=== PATIENT | female | born 1975 | race Caucasian/White ===

== ENCOUNTER 2018-10-17 16:24 | Emergency (ER) | payer SELFPAY ==
[2018-10-17 16:25] VITALS: BP 125/72; PULSE 94; RESP 16; TEMP 36.8; O2SAT 100; BMI 22.9
--- NOTE | 2018-10-17 16:29 | ED.VIS.GEN ---
History of Present Illness Chief Complaint: Bite Informant: Patient Onset: Days Narrative: Patient presents stating I think I have a spider bite. For the last several days, she has had an area of swelling and pain to the posterior aspect of her right forearm. She denies any injury. She states that it started out as a pruritic red bumps that she thought was just an insect bite. It is progressively getting worse. She has never had anything like this before. She does report some nausea but no fever, chills, vomiting. Denies IV drug abuse. Past Medical History - Allergies and Home Meds Allergies/Adverse Reactions: Allergies No Known Allergies Allergy (Verified 10/17/18 16:27) Primary Care Physician: Vern Villareal MD [Primary Care Provider] - Smoking Status: Current every day smoker Review of Systems General: Denies: Chills, Fever, Sweats Eyes: Denies: Visual changes - bilaterally, Diplopia ENT: Denies: Rhinorrhea, Sore throat Cardiovascular: Denies: Chest pain, Palpitations Respiratory: Denies: Dyspnea, Cough, Dyspnea on exertion Gastrointestinal: Reports: Nausea. Denies: Abdominal pain, Vomiting, Diarrhea, Melena, Hematochezia Genitourinary: Denies: Dysuria, Hematuria, Frequency Musculoskeletal: Denies: Back pain, Extremity Pain Skin: Reports: Abscess. Denies: Rash, Wounds Neurological: Denies: Headache, Weakness, Numbness Physical Exam Vital Signs/Narrative: Vital Signs Temp Pulse Resp BP Pulse Ox 10/17/18 16:25 98.3 F 94 16 125/72 H 100 General: Well nourished, Well developed, No Acute Distress Head: Normocephalic, Atraumatic Eyes: Perrl, EOMI ENT: Moist mucous membranes, No rhinorrhea Neck: Supple, Nontender Cardiovascular: Regular rate, Regular rhythm, No murmurs Respiratory: No distress, CTA bilaterally, Chest nontender Abdomen: Soft, Nontender, Nondistended, Normal bowel sounds Back: Nontender, Normal Inspection Extremities: Nontender, No edema Skin: Normal color, No rash, - - Area of erythema and induration over the posterior aspect of the right mid forearm measuring approximately 4 cm in diameter. No lymphangitic streaking. No fluctuance. No Rash. Multiple scabby lesions noted over the patient's upper and lower extremities. Patient has ecchymosis to her left thigh which she states is due to injury which occurred several days ago. Neurological: Alert, Oriented x3, Cranial nerves II-XII grossly intact, Normal Strength, Normal Sensation Psychological: Normal affect, Normal Mood Diagnostic/Tx/Re-eval - Medical Decision Making Patient presents to the ED with area of erythema and swelling over the posterior aspect of the right forearm. Following history and physical exam, I discussed the patient that this is most likely an early abscess with associated cellulitis. She declines incision and drainage. She will be placed on a course of Bactrim and Keflex. She was educated on signs/symptoms to return to the ED. She is provided discharge instructions. She was instructed to follow-up with her PCP. She was agreeable to plan. ED Disposition - Plan for ED Patient: Disposition: Home or Assisted Living Diagnosis: Abscess Instructions: ABSCESS, Antiobiotic Treatment Only Prescriptions: Smz/Tmp Ds [Bactrim Ds] 1 tab PO BID #14 tab Prescription Printed Cephalexin [Keflex] 500 mg PO Q6 #40 cap Prescription Printed Referrals: Vern Villareal MD [Primary Care Provider] -
[2018-10-17] MEDS: Cephalexin 250 MG Capsule 500 MG PO (17:23)
[2018-10-17] MEDS: Smz/Tmp Ds Tablet 1 TABLET PO (17:23)
== END 2018-10-17 17:25 | disposition home or self-care (01) ==
PROVIDERS: Emergency Provider Physician Assistant; Family Provider Family Medicine; PCP Family Medicine
DX: L02.413 Cutaneous abscess of right upper limb (principal); R11.0 Nausea; S70.12XA Contusion of left thigh, initial encounter; X58.XXXA Exposure to other specified factors, initial encounter; Y93.9 Activity, unspecified; Y92.9 Unspecified place or not applicable; Y99.9 Unspecified external cause status; F17.200 Nicotine dependence, unspecified, uncomplicated
CPT/HCPCS: 99283

== ENCOUNTER 2019-12-02 14:02 | Emergency (ER) | payer MEDICAID, SELFPAY ==
[2019-12-02 14:03] VITALS: BP 158/100; PULSE 102; RESP 20; TEMP 36.4; O2SAT 98; BMI 17.6
--- NOTE | 2019-12-02 15:00 | ED.DCSUM_ITS ---
- ER Visit Summary Date of Service: 12/02/19 Chief Complaint: Dental abscess History of Present Illness: The patient is a 44 F who presents with a dental abscess that has been getting worse over the past 2 days. Patient states she has swelling over her left upper premolars and cheek. Patient states the pain is aching. Patient states she has a fever of 101 at home. Patient states nothing is been helping with the pain. Patient denies any hot or cold sensitivity. Patient denies any sore throat or difficulty swallowing. Physical Examination: Vital signs are stable. Patient is afebrile. Patient is in no acute distress. Oral mucosa is pink and moist. There is a large dental carry noted over the left upper first premolar. There is gingival edema around this tooth. There is no fluctuance. There is no discharge or drainage. There are multiple other dental caries noted. Oropharynx is clear. Neck is supple. Trachea is midline. There is no JVD. There is no sublingual lymphadenopathy or sublingual edema. Cranial nerves II through XII are intact. There are no focal motor or sensory deficits noted. Emergency Department Course and Treatment: Patient was given a dose of Pen-Vee K and Naprosyn here. Patient was given prescription for Pen-Vee K and Naprosyn. Patient was instructed to follow-up with her dentist in 3 to 5 days. Patient understood and was agreeable with the plan. All questions were answered. Disposition: Discharge home Impression: Dental abscess This note was generated with [employer] dictation software. It may contain incorrect words, spelling, and punctuation that were not noted in review of the chart prior to signing ED Disposition - Plan for ED Patient: Disposition: Home or Assisted Living Diagnosis: Dental abscess Instructions: ED ABSCESS DENTAL Prescriptions: Naproxen [Naprosyn] 500 mg PO BID PRN #20 tab Prescription Printed Penicillin V Potassium 500 mg PO 4X/DAY #40 tab Prescription Printed Referrals: Vern Villareal MD [Primary Care Provider] - 3-5 Days Madina Bob [NON-STAFF] - 3-5 Days
[2019-12-02] MEDS: Naproxen 250 MG Tablet 500 MG PO (15:12)
[2019-12-02] MEDS: Penicillin Vk 250 MG Tablet 500 MG PO (15:12)
[2019-12-02 15:15] VITALS: BP 158/100; PULSE 102; RESP 20; TEMP 36.4; O2SAT 98
== END 2019-12-02 15:16 | disposition home or self-care (01) ==
PROVIDERS: Emergency Provider Emergency Medicine; PCP Family Medicine
DX: K04.7 Periapical abscess without sinus (principal); K02.9 Dental caries, unspecified; Z72.0 Tobacco use
CPT/HCPCS: 99283